=== PATIENT | female | born 1995 | race Caucasian/White ===

== ENCOUNTER 2017-10-18 16:17 | Inpatient (IN) ==
--- NOTE | 2017-10-18 17:26 | Emergency Department Note ---
Disposition Clinical Impression: Suicidal ideation Depression Qualifiers: Depression Type: unspecified Qualified Code(s): F32.9 - Major depressive disorder, single episode, unspecified Disposition: Admitted As Inpatient Condition: Good Referrals: NONE,PCP [Primary Care Provider] - Forms: ED Satisfaction Letter Time of Disposition: 21:28 Psych HPI - General Chief Complaint: ED Psychiatric Symptoms Stated Complaint: 1a consult Time Seen by Provider: 10/18/17 17:18 Source: patient Mode of arrival: ambulatory Limitations: no limitations Nursing Notes Reviewed: Yes Vital Signs Reviewed: Yes - History of Present Illness HPI Narrative: 22 year old female wit HX of depression and [facility] the past is a patient of Dr. Aviles and presents with increased depresion thoughts and lack of enthusiam to live. She does not have a plan but she states that her deprssion has worsened to the point that she does not care if she dies. Melisa states that Dr. Tobar has asked her to come to the ED for evaluation for 1A consult. Melisa denies any changes in medicatiosn and states that this is similar to how she felt when she was admitted last [facility]. increased stressors in life inclusing family and friends. - Related Data Allergies Allergy/AdvReac Type Severity Reaction Status Date / Time clonazepam Allergy Hallucinati Verified 01/26/16 13:58 ng lisinopril Allergy Hypertensio Verified 01/26/16 13:58 n morphine Allergy Hives Verified 01/26/16 13:58 Constitutional: Denies: fever, chills, weakness, weight change Eyes: Denies: eye pain, eye discharge, vision change ENT ED: Denies: ear pain, throat pain, dental pain, hearing loss, epistaxis, congestion, dysphagia Cardiovascular: Denies: chest pain, palpitations, dyspnea on exertion, edema, syncope Respiratory: Denies: cough, dyspnea, wheezes, hemoptysis, stridor Gastrointestinal: Denies: abdominal pain, nausea, vomiting, diarrhea, constipation, hematemesis, melena, hematochezia Genitourinary: Denies: dysuria, frequency, hematuria, discharge Musculoskeletal: Denies: back pain, neck pain, arthralgia, myalgia Integumentary: Denies: rash, abrasion, lesions Neurological: Denies: headache, weakness, numbness, paresthesias, confusion, abnormal gait, vertigo Psychiatric: Reports: depression. Denies: anxiety, suicidal thoughts, homicidal thoughts, auditory hallucinations, visual hallucinations Endocrine: Denies: fatigue Hematological/Lymphatic: Denies: easy bleeding, easy bruising Allergic/Immunologic: Denies: facial swelling, urticaria Past Medical History - Past Medical History Medical history: Reports: hypertension Psychiatric history: Reports: anxiety, depression [employer] history: Reports: endometriosis - Social History Smoking Status: Never smoker Smokeless Tobacco Status: No Alcohol use: Reports: none Drug use: Reports: none Physical Exam - General Limitations: no limitations General appearance: alert - Head Head exam: atraumatic, normocephalic, normal inspection - Eye Eye exam: Present: normal appearance, PERRL, EOMI - Expanded Eye Exam Pupils: Bilateral: reactive - ENT ENT exam: normal exam, normal oropharynx, mucous membranes moist - Expanded ENT Exam External ear exam: Present: normal external inspection Mouth exam: Present: normal external inspection Teeth exam: Present: normal inspection Throat exam: Present: normal inspection - Neck Neck exam: Present: normal inspection, full ROM, trachea midline - Chest Chest inspection: Present: normal inspection, symmetric chest wall rise - Respiratory Respiratory exam: Present: normal lung sounds bilaterally - Cardiovascular Cardiovascular exam: Present: regular rate, normal rhythm, normal heart sounds - Abdominal Exam Abdominal exam: Present: soft, Non-Tender. Absent: tenderness, distention, guarding, rebound, rigidity - Extremities Exam Extremities exam: Present: normal inspection, full ROM. Absent: tenderness, pedal edema - Expanded Upper Extremity Exam Shoulder exam: Present: normal inspection, full ROM Arm exam: Present: normal inspection, full ROM Elbow exam: Present: normal inspection, full ROM Forearm/Wrist exam: Present: normal inspection, full ROM Hand exam: Present: normal inspection, full ROM Vascular exam: Normal: capillary refill, radial pulse - Expanded Lower Extremity Exam Hip/Pelvis exam: Present: normal inspection, full ROM Upper leg exam: Present: normal inspection, full ROM Knee exam: Present: normal inspection, full ROM Lower leg exam: Present: normal inspection, full ROM Ankle exam: Present: normal inspection, full ROM Foot/toe exam: Present: normal inspection, full ROM Neurovascular/Tendon exam: Absent: motor deficit, sensory deficit, tendon deficit - Back Exam Back exam: Present: normal inspection, full ROM. Absent: tenderness - Neurological Exam Neurological exam: Present: alert, oriented X3 - Expanded Neurological Exam Patient oriented to: Present: person, place, time Speech: Present: fluid speech Coma Scale Eye Opening: Spontaneous Coma Scale Motor Response: Obeys Commands Coma Scale Verbal Response: Oriented Coma Scale Total: 15 - Psychiatric Psychiatric exam: Present: depressed, flat affect - Skin Skin exam: Present: warm, dry, intact, normal color Course Course Narrative: we will do 1A consult after medical clearance - Reevaluation(s) Reevaluation #1: melisa is medically cleared. 1A consulted Time: 19:08 Reevaluation #2: 1A has accepted patient. WE will treat her blood pressure with home medication and then admit to 1A Time: 21:28 Vital Signs Temperature 98.6 F 10/18/17 16:35 Pulse Rate 121 10/18/17 16:35 Respiratory Rate 18 10/18/17 16:35 Blood Pressure 159/106 10/18/17 16:35 O2 Sat by Pulse Oximetry 99 10/18/17 16:35 Temperature 98.6 F 10/18/17 16:35 Pulse Rate 121 10/18/17 16:35 Respiratory Rate 18 10/18/17 16:35 Blood Pressure 159/106 10/18/17 16:35 O2 Sat by Pulse Oximetry 99 10/18/17 16:35 Oxygen Delivery Oxygen Delivery Room Air Psych - Lab Data Result diagrams: 10/18/17 17:00 10/18/17 17:00 Lab Results 10/18/17 10/18/17 10/18/17 Range/Units 16:52 17:00 17:00 WBC 7.9 (4.3-11.1) K/mcL RBC 4.74 (3.82-4.97) M/mcL Hgb 14.1 (11.5-15.4) g/dL Hct 42.6 (35.3-44.9) % MCV 89.9 (83.0-100.0) fL MCH 29.7 (28.0-33.3) pg MCHC 33.1 (31.6-35.5) g/dL RDW 12.3 (11.5-14.5) % Plt Count 249 (140-400) K/mcL MPV 10.6 (9.4-12.4) fL Immature Gran % 0.3 (0-4) % Seg Neutrophils % 67.6 % Lymphocytes % 21.6 % Monocytes % 8.3 % Eosinophils % 1.4 % Basophils % 0.8 % Neutrophils # 5.4 (1.6-8.9) K/mcL Lymphocytes # 1.7 (0.6-4.6) K/mcL Monocytes # 0.7 (0.0-1.3) K/mcL Eosinophils # 0.1 (0.0-0.6) K/mcL Basophils # 0.1 (0.0-0.2) K/mcL Sodium 141 (136-145) mEq/L Potassium 4.0 (3.5-5.1) mEq/L Chloride 110 H (98-107) mEq/L Carbon Dioxide 23 (23-29) mEq/L BUN 12 (6-20) mg/dL Creatinine 0.93 (0.60-1.20) mg/dL Est GFR ( Amer) > 60 (> 60) Est GFR (Non-Af Amer) > 60 (> 60) BUN/Creatinine Ratio 13 (6-26) Glucose 102 (70-105) mg/dL Calculated Osmolality 292 (280-300) Calcium 9.3 (8.6-10.3) mg/dL Urine Color (Yellow) Urine Clarity (Clear) Urine pH (5.0-8.0) pH Units Ur Specific [place] (1.010-1.025) Urine Protein (Neg-Trace) mg/dL Urine Glucose (UA) (Normal) mg/dL Urine Ketones (Negative) mg/dL Urine Blood (Negative) Urine Nitrite (Negative) Urine Bilirubin (Negative) Urine Urobilinogen (Normal) mg/dL Ur Leukocyte Esterase (Negative) Ur Culture Indicated? (NO) Urine Test Negative (Negative) Salicylates < 5.0 L (15.0-30.0) mg/dL Urine Opiates Screen (Qfivdm=590) ng/mL Acetaminophen < 1.0 L (10-30) mcg/mL Ur Barbiturates Screen (Dffaeg=996) ng/mL Ur Phencyclidine Scrn (Cutoff=25) ng/mL Ur Amphetamines Screen (Judyrm=2543) ng/mL U Benzodiazepines Scrn (Bmcpkx=814) ng/mL Urine Cocaine Screen (Cutoff= 300) ng/mL U Marijuana (THC) Screen (Cutoff = 50) ng/mL Ethyl Alcohol < 10 (0-10) mg/dL 10/18/17 10/18/17 Range/Units 17:17 17:20 WBC (4.3-11.1) K/mcL RBC (3.82-4.97) M/mcL Hgb (11.5-15.4) g/dL Hct (35.3-44.9) % MCV (83.0-100.0) fL MCH (28.0-33.3) pg MCHC (31.6-35.5) g/dL RDW (11.5-14.5) % Plt Count (140-400) K/mcL MPV (9.4-12.4) fL Immature Gran % (0-4) % Seg Neutrophils % % Lymphocytes % % Monocytes % % Eosinophils % % Basophils % % Neutrophils # (1.6-8.9) K/mcL Lymphocytes # (0.6-4.6) K/mcL Monocytes # (0.0-1.3) K/mcL Eosinophils # (0.0-0.6) K/mcL Basophils # (0.0-0.2) K/mcL Sodium (136-145) mEq/L Potassium (3.5-5.1) mEq/L Chloride (98-107) mEq/L Carbon Dioxide (23-29) mEq/L BUN (6-20) mg/dL Creatinine (0.60-1.20) mg/dL Est GFR ( Amer) (> 60) Est GFR (Non-Af Amer) (> 60) BUN/Creatinine Ratio (6-26) Glucose (70-105) mg/dL Calculated Osmolality (280-300) Calcium (8.6-10.3) mg/dL Urine Color Yellow (Yellow) Urine Clarity Clear (Clear) Urine pH 6.5 (5.0-8.0) pH Units Ur Specific [place] 1.027 H (1.010-1.025) Urine Protein Negative (Neg-Trace) mg/dL Urine Glucose (UA) Normal (Normal) mg/dL Urine Ketones Negative (Negative) mg/dL Urine Blood Negative (Negative) Urine Nitrite Negative (Negative) Urine Bilirubin Negative (Negative) Urine Urobilinogen Normal (Normal) mg/dL Ur Leukocyte Esterase Negative (Negative) Ur Culture Indicated? NO (NO) Urine Test (Negative) Salicylates (15.0-30.0) mg/dL Urine Opiates Screen Negative (Mjoiwo=191) ng/mL Acetaminophen (10-30) mcg/mL Ur Barbiturates Screen Negative (Cizpcv=225) ng/mL Ur Phencyclidine Scrn Negative (Cutoff=25) ng/mL Ur Amphetamines Screen Negative (Flxjsj=6285) ng/mL U Benzodiazepines Scrn Negative (Vnarad=107) ng/mL Urine Cocaine Screen Negative (Cutoff= 300) ng/mL U Marijuana (THC) Screen Negative (Cutoff = 50) ng/mL Ethyl Alcohol (0-10) mg/dL Psychiatric Medical Clearance - Medical Clearance Checklist Medical History: Closed head injury (Inactive) Concussion without loss of consciousness (Inactive) Contusion of left hand (Inactive) Syncope (Inactive) No Social History Section defined Current Vitals: Last Vital Signs Temp 98.6 F 10/18/17 16:35 Pulse 121 10/18/17 16:35 Resp 18 10/18/17 16:35 BP 159/106 10/18/17 16:35 Pulse Ox 99 10/18/17 16:35 Psychiatric Lab Panel: Drug Levels and Toxicity 10/18/17 10/18/17 17:00 17:17 Urine Opiates Screen Negative Acetaminophen < 1.0 L Ur Barbiturates Screen Negative Ur Phencyclidine Scrn Negative Ur Amphetamines Screen Negative U Benzodiazepines Scrn Negative Urine Cocaine Screen Negative U Marijuana (THC) Screen Negative Ethyl Alcohol < 10 Abnormal Labs: Abnormal lab results Chloride 110 mEq/L (98-107) H 10/18/17 17:00 Ur Specific [place] 1.027 (1.010-1.025) H 10/18/17 17:20 Salicylates < 5.0 mg/dL (15.0-30.0) L 10/18/17 17:00 Acetaminophen < 1.0 mcg/mL (10-30) L 10/18/17 17:00 Statement of Medical Clearance: I have evaluated the patient, reviewed diagnostic information, and certify that the patient's medical condition is sufficiently stable that transfer to the psychiatric unit does not pose a significant risk of deterioration.
[2017-10-18 17:29] LABS: Bilirubin,Urine Negative (Negative); Blood,Urine Negative (Negative); Clarity,Urine Clear (Clear); Color,Urine Yellow (Yellow); Glucose,Urine (UA) Normal (Normal); Ketones,Urine Negative (Negative); Nitrite,Urine Negative (Negative); PH,Urine 6.5 pH Units (5.0-8.0); Protein,Urine Negative (Neg-Trace); Specific Gravity,Urine 1.027 (1.010-1.025); Urobilinogen,Urine Normal (Normal)
[2017-10-18 17:30] LABS: Leukocyte Esterase,Urine Negative (Negative)
[2017-10-18 17:39] LABS: Basophils # 0.1 K/mcL (0.0-0.2); Basophils % 0.8 %; Eosinophils # 0.1 K/mcL (0.0-0.6); Eosinophils % 1.4 %; Hematocrit 42.6 % (35.3-44.9); Hemoglobin 14.1 g/dL (11.5-15.4); Immature Granulocytes % 0.3 % (0-4); Lymphocytes # 1.7 K/mcL (0.6-4.6); Lymphocytes % 21.6 %; Mean Corpuscular HGB Conc 33.1 g/dL (31.6-35.5); Mean Corpuscular Hemoglobin 29.7 pg (28.0-33.3); Mean Corpuscular Volume 89.9 fL (83.0-100.0); Mean Platelet Volume 10.6 fL (9.4-12.4); Monocytes # 0.7 K/mcL (0.0-1.3); Monocytes % 8.3 %; Neutrophils # 5.4 K/mcL (1.6-8.9); Platelet Count 249 K/mcL (140-400); Red Blood Count 4.74 M/mcL (3.82-4.97); Red Cell Distribution Width 12.3 % (11.5-14.5); Segmented Neutrophils % 67.6 %
[2017-10-18 17:57] LABS: Amphetamine Screen,Urine Negative ng/mL (Cutoff=1000); Barbiturate Screen,Urine Negative ng/mL (Cutoff=200); Benzodiazepines Screen,Urine Negative ng/mL (Cutoff=200); Cannabinoid Screen,Urine Negative ng/mL (Cutoff = 50); Cocaine Screen,Urine Negative ng/mL (Cutoff= 300); Opiate Screen,Urine Negative ng/mL (Cutoff=300); Phencyclidine Screen,Urine Negative ng/mL (Cutoff=25)
[2017-10-18 17:59] LABS: BUN/Creatinine Ratio 13 (6-26); Blood Urea Nitrogen 12 mg/dL (6-20); Calcium 9.3 mg/dL (8.6-10.3); Carbon Dioxide 23 mEq/L (23-29); Chloride 110 mEq/L (98-107); Glucose 102 mg/dL (70-105); Osmolality,Calculated 292 (280-300); Sodium 141 mEq/L (136-145); eGFR For African Americans > 60 (> 60); eGFR For Non-African Americans > 60 (> 60)
[2017-10-18 19:04] LABS: Acetaminophen < 1.0 mcg/mL (10-30); Ethanol < 10 mg/dL (0-10); Salicylate < 5.0 mg/dL (15.0-30.0)
[2017-10-18] MEDS ORDERED: *HR* LORazepam 2 MG/ML VIAL IM PRN (23:58)
[2017-10-18] MEDS ORDERED: Mag Hydrox/Al Hydrox/Simeth 30 ML UDC PO PRN (23:58)
[2017-10-18] MEDS ORDERED: traZODone 50 MG TABLET PO PRN (23:58)
[2017-10-18] MEDS ORDERED: Acetaminophen 325 MG TABLET PO PRN (23:58)
[2017-10-18] MEDS ORDERED: MOM Conc 10 ML UD.LIQ PO PRN (23:58)
[2017-10-18] MEDS ORDERED: *HR* LORazepam 1 MG TABLET PO PRN (23:58)
[2017-10-18] MEDS ORDERED: Haloperidol Lactate 5 MG/ML VIAL IM PRN (23:58)
[2017-10-19] MEDS: ALPRAZolam 0.5 MG TABLET PO PRN ×2 (08:59→21:28)
[2017-10-19] MEDS: amLODIPine 5 MG TABLET PO SCH (09:00)
[2017-10-19] MEDS: LO LOESTRIN FE PO SCH (11:39)
[2017-10-19] MEDS ORDERED: ALPRAZolam 0.5 MG TABLET PO ONE (12:26)
--- NOTE | 2017-10-19 14:56 | Psychiatry History & Physical ---
Date of Encounter: 10/19/17 Time of Encounter: 14:30 History of Present Illness Patient Stated Chief Complaint: sad as crap, never been this sad Medicare Admission Attestation: For traditional Medicare patients the provided hospital inpatient services are reasonable and necessary and in the case of services not specified as inpatient -only under 42 CFR 419.22 (n), that they are appropriately provided as inpatient services in accordance 42 CFR 412.3. For Critical Access Hospital the patient may reasonably be expected to be discharged or transferred to a hospital within 96 hours after admission to the Critical Access Hospital. Admitted From: Emergency Dept Plans for Post Hospital Care: Home History of Present Illness: Ms. Ramirez is a 22 year old female Patient is followed in [facility]. She has been seen by Dr. Tobar. The most recent notes were reviewed. The patient reports that she has ongoing depression and has had suicidal ideation on medicines. She had an adverse reaction to clonazepam and attempt to stab herself. The patient reports that she has had major depression since eighth grade this is after they told her that she could have had MS this is based in part on findings of "white spots on the brain" patient follows up with a neurologist once a year she has had multiple concussions. She has been told that she does not have MS. The patient has low mood low interest guilt trouble with attention and concentration she has some excessive stress eating. She has good exercise she goes to the gym her sleep is poor and abnormal. The patient has no suicidal plans but has a feeling that she does not want to exist or feels as if she could . Patient had excessive that it had low mood associated with bereavement. Her mother in an auto accident unexpectedly September [id number]. The patient had been engaged in thought of getting but is not sure. The depression is causing impairment in her relationship. She is panic attacks a history of agoraphobia and generalized anxiety symptoms she denies cleaning counting checking collecting confessing. The patient has some recall of the loss of her mother and says that her mother was her best friend. The patient was hospitalized when she was a freshman she was placed on medicines made her feel like a zombie. The hospitalization was precipitated by withdrawal from the entire anxiety medicine after 2 weeks after a form Sonam. Patient has no alcohol drug or even marijuana use. Past medical history is significant for right knee meniscal surgery history of tonsillectomy. Laparoscopy to look for endometriosis which was not found Illnesses hypertension headaches. The patient has no history of seizures. 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 The patient's allergies are listed but she had an allergic reaction to Zoloft where she attempted herself. The family history is significant for mother who is on medications for depression including Zoloft. There is no history of suicide. 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 They are near the grandparents. 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 She is attending college she is hoping medical and social work. She has no other legal problems. The wedding is all bottom paid for by her fiance is not sure as they seem to be growing more distant. The review of systems significant for several things. The patient talks in her sleep she has nightmares and dreams where she sees her mother and wakes up crying. There are panic attacks that she wakes she has no sleepwalking. The patient has snoring and her fiance's told her that. The patient was never treated for attention deficit disorder. The family history is significant for mother with sleep apnea maternal grandmother was sleep apnea maternal cousin with sleep apnea. The patient has been tried on Zoloft Abilify Prozac but has never been on Wellbutrin she has never been on stimulants Provigil and as far as I can tell is never been on tricyclic antidepressants Patient has been on control but rather than taking it as prescribed she skips last week in order not.. So she has oligomenorrhea. This is because she has dysmenorrhea and finds Alhaji so difficult that she wants to avoid it. She knows that this is bad but was not sure about this. The patient also has despair and uremia. This has caused some concerns in the marital relationship and the patient is avoided relations nonetheless she would like children. The patient has chronic constipation. The patient has hypertension just treated with several medicines she has been told with the left heart of her left side of her heart was enlarged Past Med Surg Social Fam HX - Past Medical History Source: patient, old records reviewed Medical history: hypertension - Past Psychiatric History Psychiatric history: Reports: depression, prior suicide attempt, previous psychiatric hospitalization Family psychiatric history: Yes Family History of Suicide: None - Social History Smoking Status: Never smoker Smokeless Tobacco Status: No Alcohol use: none Drug use: none - Additional Family History Additional family history: sleep apnea Medications & Allergies ALPRAZolam [Xanax 0.5 MG Tablet] 0.25 - 0.5 mg PO BID PRN 10/18/17 [History] Carvedilol [Coreg] 25 mg PO BID 10/18/17 [History] Losartan Potassium [Cozaar] 100 mg PO DAILY 10/18/17 [History] Norethindrone-E.estradiol-Iron [Lo Loestrin Fe 1-10 Tablet] 1 tab PO DAILY 10/18 [History] Pantoprazole Sodium [Pantoprazole Sodium] 40 mg PO DAILY 10/18/17 [History] amLODIPine [Norvasc] 5 mg PO DAILY 10/18/17 [History] 3 Allergy/AdvReac Type Severity Reaction Status Date / Time clonazepam Allergy Hallucinati Verified 01/26/16 13:58 ng lisinopril Allergy Hypertensio Verified 01/26/16 13:58 n morphine Allergy Hives Verified 01/26/16 13:58 Review of Systems Constitutional: Reports: weight change Gastrointestinal: Reports: constipation Genitourinary female: Reports: abnormal menses, dyspareunia Musculoskeletal: Reports: joint pain Neurological: Reports: headache Psychiatric: Reports: abnormal sleep pattern, change in appetite, difficulty concentrating, hopelessness, panic attacks Mental Status Exam Patient orientation: Yes Person, Yes Time, Yes Place Level of alertness: Sedated Patient appearance: Appropriate, Obese Behavior: cooperative Psychomotor activity: Slowed Eye contact: Maintains Eye Contact Mood description: Depressed Affect description: congruent with mood, blunted Speech pattern: Slowed Speech volume: Normal Thought process: Intact Thought content: Yes Suicidal ideation, Yes Obsessive thoughts Attention span: Capable of Focused Attention Memory description: Grossly Intact Patient reliability: Reliable Historian Intelligence estimate: Above [place] Judgment: Fair Insight: Partial Exam - HEENT Head exam IM: Present: atraumatic, normal inspection, normocephalic Eye exam IM: Present: EOMI, PERRL ENT exam IM: Present: mucous membranes dry - Neurological Neurological exam IM: Present: normal gait - GI/Abdominal GI/Abdominal exam IM: Present: soft - Extremities Extremities exam IM: Present: warm - Skin Skin exam IM: Present: warm Results - Vital Signs Vital signs: Temp Pulse Resp BP Pulse Ox 98.9 F 85 16 145/88 97 10/19/17 09:00 10/19/17 09:00 10/19/17 09:00 10/19/17 09:00 10/18/17 22:04 - Labs Labs: Laboratory Last Values WBC 7.9 K/mcL (4.3-11.1) 10/18/17 17:00 RBC 4.74 M/mcL (3.82-4.97) 10/18/17 17:00 Hgb 14.1 g/dL (11.5-15.4) 10/18/17 17:00 Hct 42.6 % (35.3-44.9) 10/18/17 17:00 MCV 89.9 fL (83.0-100.0) 10/18/17 17:00 MCH 29.7 pg (28.0-33.3) 10/18/17 17:00 MCHC 33.1 g/dL (31.6-35.5) 10/18/17 17:00 RDW 12.3 % (11.5-14.5) 10/18/17 17:00 Plt Count 249 K/mcL (140-400) 10/18/17 17:00 MPV 10.6 fL (9.4-12.4) 10/18/17 17:00 Immature Gran % 0.3 % (0-4) 10/18/17 17:00 Seg Neutrophils % 67.6 % 10/18/17 17:00 Lymphocytes % 21.6 % 10/18/17 17:00 Monocytes % 8.3 % 10/18/17 17:00 Eosinophils % 1.4 % 10/18/17 17:00 Basophils % 0.8 % 10/18/17 17:00 Neutrophils # 5.4 K/mcL (1.6-8.9) 10/18/17 17:00 Lymphocytes # 1.7 K/mcL (0.6-4.6) 10/18/17 17:00 Monocytes # 0.7 K/mcL (0.0-1.3) 10/18/17 17:00 Eosinophils # 0.1 K/mcL (0.0-0.6) 10/18/17 17:00 Basophils # 0.1 K/mcL (0.0-0.2) 10/18/17 17:00 Sodium 141 mEq/L (136-145) 10/18/17 17:00 Potassium 4.0 mEq/L (3.5-5.1) 10/18/17 17:00 Chloride 110 mEq/L (98-107) H 10/18/17 17:00 Carbon Dioxide 23 mEq/L (23-29) 10/18/17 17:00 BUN 12 mg/dL (6-20) 10/18/17 17:00 Creatinine 0.93 mg/dL (0.60-1.20) 10/18/17 17:00 Est GFR ( Amer) > 60 (> 60) 10/18/17 17:00 Est GFR (Non-Af Amer) > 60 (> 60) 10/18/17 17:00 BUN/Creatinine Ratio 13 (6-26) 10/18/17 17:00 Glucose 102 mg/dL (70-105) 10/18/17 17:00 Calculated Osmolality 292 (280-300) 10/18/17 17:00 Calcium 9.3 mg/dL (8.6-10.3) 10/18/17 17:00 Urine Color Yellow (Yellow) 10/18/17 17:20 Urine Clarity Clear (Clear) 10/18/17 17:20 Urine pH 6.5 pH Units (5.0-8.0) 10/18/17 17:20 Ur Specific [place] 1.027 (1.010-1.025) H 10/18/17 17:20 Urine Protein Negative mg/dL (Neg-Trace) 10/18/17 17:20 Urine Glucose (UA) Normal mg/dL (Normal) 10/18/17 17:20 Urine Ketones Negative mg/dL (Negative) 10/18/17 17:20 Urine Blood Negative (Negative) 10/18/17 17:20 Urine Nitrite Negative (Negative) 10/18/17 17:20 Urine Bilirubin Negative (Negative) 10/18/17 17:20 Urine Urobilinogen Normal mg/dL (Normal) 10/18/17 17:20 Ur Leukocyte Esterase Negative (Negative) 10/18/17 17:20 Ur Culture Indicated? NO (NO) 10/18/17 17:20 Urine Test Negative (Negative) 10/18/17 16:52 Salicylates < 5.0 mg/dL (15.0-30.0) L 10/18/17 17:00 Urine Opiates Screen Negative ng/mL (Jpvwpi=528) 10/18/17 17:17 Acetaminophen < 1.0 mcg/mL (10-30) L 10/18/17 17:00 Ur Barbiturates Screen Negative ng/mL (Gifnvu=747) 10/18/17 17:17 Ur Phencyclidine Scrn Negative ng/mL (Cutoff=25) 10/18/17 17:17 Ur Amphetamines Screen Negative ng/mL (Hcjqhy=1057) 10/18/17 17:17 U Benzodiazepines Scrn Negative ng/mL (Sljzjc=063) 10/18/17 17:17 Urine Cocaine Screen Negative ng/mL (Cutoff= 300) 10/18/17 17:17 U Marijuana (THC) Screen Negative ng/mL (Cutoff = 50) 10/18/17 17:17 Ethyl Alcohol < 10 mg/dL (0-10) 10/18/17 17:00 Assessment and Plan (1) Major depressive disorder, recurrent severe without psychotic features Current visit: Yes Status: Acute Plan: Admit inpatient for safety and stabilization, Close observation Risks, benefits, side effects, alternatives discussed w/pt: Yes Patient agreeable to treatment: Yes Plans for Post Hospital Care: Home Estimated Length of Stay ( Days): 5 (2) Anxiety disorder Current visit: Yes Status: Chronic Plan: Monitor appetite, Family/Supportive other meeting Risks, benefits, side effects, alternatives discussed w/pt: Yes Patient agreeable to treatment: Yes Plans for Post Hospital Care: Home Qualifiers: Anxiety disorder type: panic disorder without agoraphobia Qualified Code(s) : F41.0 - Panic disorder [episodic paroxysmal anxiety] (3) Essential (primary) hypertension Current visit: Yes Status: Chronic Plan: Admit inpatient for safety and stabilization, Suicide Precautions per unit protocol Risks, benefits, side effects, alternatives discussed w/pt: Yes Patient agreeable to treatment: Yes Plans for Post Hospital Care: Home (4) Dyspareunia due to non-psychogenic cause in female Current visit: Yes Status: Suspected Risks, benefits, side effects, alternatives discussed w/pt: Yes Patient agreeable to treatment: Yes Plans for Post Hospital Care: Home (5) Parasomnia Current visit: Yes Status: Chronic Plan: Close observation, Monitor sleep Risks, benefits, side effects, alternatives discussed w/pt: Yes Patient agreeable to treatment: Yes Plans for Post Hospital Care: Home (6) Adverse effect of other antidepressants, subsequent encounter Current visit: Yes Status: Acute Plan: Admit inpatient for safety and stabilization, Close observation, Encourage participation in unit milieu, Secure weapons Risks, benefits, side effects, alternatives discussed w/pt: Yes Patient agreeable to treatment: Yes Plans for Post Hospital Care: Home
[2017-10-20] MEDS: BuPROPion XL (24 HR) 150 MG TABLET PO SCH (08:59)
[2017-10-20] MEDS: amLODIPine 5 MG TABLET PO SCH (08:59)
[2017-10-20] MEDS: LO LOESTRIN FE PO SCH (08:59)
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
[2017-10-20] MEDS: Ibuprofen 400 MG TABLET PO PRN (11:17)
[2017-10-20] MEDS: ALPRAZolam 0.5 MG TABLET PO PRN ×2 (13:44→21:33)
[2017-10-21] MEDS: amLODIPine 5 MG TABLET PO SCH (08:31)
[2017-10-21] MEDS: BuPROPion XL (24 HR) 150 MG TABLET PO SCH (08:32)
[2017-10-21] MEDS: ALPRAZolam 0.5 MG TABLET PO PRN (08:32)
[2017-10-21] MEDS: LO LOESTRIN FE PO SCH ×2 (08:37→15:12)
--- NOTE | 2017-10-21 12:45 | Psychiatry Progress Note ---
Date of Encounter: 10/21/17 Time of Encounter: 12:42 Subjective Interval history: Client states she is still severely depressed. Wonders if she is getting worse. Actually notices an increase in her SI. Discussed whether or not she might have sleep apnea. Client is obese. She endorses poor sleep, nighttime awakenings, snoring, gasping for air, morning headaches and daytime sleepiness. Client also states her mother, grandmother, and cousin were all diagnosed with sleep apnea and wore CPAP machines. Discussed how sleep apnea can cause and worsen depression. Client definitely needs a sleep study. Will start pursuing this when offices open tomorrow. Review of Systems Psychiatric: Reports: abnormal sleep pattern, change in appetite, difficulty concentrating, hopelessness, panic attacks Objective: Exam Patient orientation: Yes Person, Yes Time, Yes Place Level of alertness: Alert Patient appearance: Appropriate Behavior: calm, cooperative Psychomotor activity: Normal Eye contact: Maintains Eye Contact Mood description: Depressed Affect description: congruent with mood Speech pattern: Normal rate Speech volume: Normal Thought process: Linear Thought content: Yes Suicidal ideation, No Homicidal ideation, No Overt delusions Perceptual disturbances: No Auditory hallucinations, No Visual hallucinations Judgment: Limited Insight: Partial Results - Vital Signs Vital Signs: Temp Pulse Resp BP Pulse Ox 98.4 F 84 18 155/94 96 10/21/17 09:00 10/21/17 09:00 10/21/17 09:00 10/21/17 09:00 10/19/17 20:07 Assessment and Plan (1) Major depressive disorder, recurrent severe without psychotic features Current visit: Yes Status: Acute Plan: Continue hospitalization, Close observation, Suicide Precautions per unit protocol, Encourage participation in unit milieu, Group Therapy, Monitor sleep, Monitor appetite Risks, benefits, side effects, alternatives discussed w/pt: Yes Patient agreeable to treatment: Yes (2) Anxiety disorder Current visit: Yes Status: Chronic Plan: Continue hospitalization, Close observation, Suicide Precautions per unit protocol, Encourage participation in unit milieu, Group Therapy, Monitor sleep, Monitor appetite Risks, benefits, side effects, alternatives discussed w/pt: Yes Patient agreeable to treatment: Yes Qualifiers: Anxiety disorder type: panic disorder without agoraphobia Qualified Code(s) : F41.0 - Panic disorder [episodic paroxysmal anxiety] (3) Adverse effect of other antidepressants, subsequent encounter Current visit: Yes Status: Acute Plan: Continue hospitalization, Close observation, Suicide Precautions per unit protocol, Encourage participation in unit milieu, Group Therapy, Monitor sleep, Monitor appetite Risks, benefits, side effects, alternatives discussed w/pt: Yes Patient agreeable to treatment: Yes Consult Discharge Plan - Plan Referrals: [facility] [Other] (The above appointment is with Dianne Radford for outpatient mental health counseling services. ) [facility] [Outside] - 11/26/17 2:20 pm (The above appointment is with Dr. Adams for psychiatric assessment and medication management services.)
[2017-10-21] MEDS ORDERED: ALPRAZolam 0.25 MG TABLET PO PRN ×2 (14:18→21:00)
[2017-10-21] MEDS: Ibuprofen 400 MG TABLET PO PRN (16:47)
[2017-10-21] MEDS ORDERED: ALPRAZolam 0.5 MG TABLET PO PRN (20:30)
[2017-10-22] MEDS: amLODIPine 5 MG TABLET PO SCH (09:20)
[2017-10-22] MEDS: BuPROPion XL (24 HR) 150 MG TABLET PO SCH (09:20)
[2017-10-22] MEDS: LO LOESTRIN FE PO SCH (09:22)
[2017-10-22 09:53] VITALS: BP 120/80
--- NOTE | 2017-10-22 12:19 | Discharge Summary ---
Date of Encounter: 10/22/17 Time of Encounter: 12:17 Diagnosis - Discharge Diagnosis (1) Major depressive disorder, recurrent severe without psychotic features Status: Acute (2) Anxiety disorder Status: Chronic Qualifiers: Anxiety disorder type: panic disorder without agoraphobia Qualified Code(s) : F41.0 - Panic disorder [episodic paroxysmal anxiety] (3) Adverse effect of other antidepressants, subsequent encounter Status: Acute Medications - Discharge Medications Prescriptions: BuPROPion XL (24 HR) [Wellbutrin Xl] 150 mg PO DAILY #14 tab.er.24h ALPRAZolam [Xanax 0.5 MG Tablet] 0.25 - 0.5 mg PO BID PRN 10/18/17 [History] Carvedilol [Coreg] 25 mg PO BID 10/18/17 [History] Losartan Potassium [Cozaar] 100 mg PO DAILY 10/18/17 [History] Norethindrone-E.estradiol-Iron [Lo Loestrin Fe 1-10 Tablet] 1 tab PO DAILY 10/18 [History] Pantoprazole Sodium 40 mg PO DAILY 10/18/17 [History] amLODIPine [Norvasc] 5 mg PO DAILY 10/18/17 [History] BuPROPion XL (24 HR) [Wellbutrin Xl] 150 mg PO DAILY #14 tab.er.24h 10/22/17 [Rx ] 3 Allergy/AdvReac Type Severity Reaction Status Date / Time clonazepam Allergy Hallucinati Verified 01/26/16 13:58 ng lisinopril Allergy Hypertensio Verified 01/26/16 13:58 n morphine Allergy Hives Verified 01/26/16 13:58 Provider Date of admission: 10/18/17 22:08 Primary care physician: PCP NONE Discharging clinician: Nicolle Gramajo Assessment and Plan - Patient/Caregiver Discharge Instructions Activity: resume usual activities as tolerated Diet: regular diet - Follow up Plan Follow up with: Jaswinder Huitron [Other] - 10/25/17 1:00 pm (The above appointment is with Dianne Radford for outpatient mental health counseling services. ) [facility] [Outside] - 11/26/17 2:20 pm (The above appointment is with Dr. Adams for psychiatric assessment and medication management services.) Mimi Hightower [facility] [Partnered Physician] - 10/29/17 1:00 pm (The above appointment is with Tatyana Hightower for primary healthcare follow-up and to discuss need for sleep study/CPAP.) Functional capacity at discharge: independent ambulation Overall status at discharge: Stable Disposition: Home, Self-Care Hospital Course Hospital course: Ms. Ramirez is a 22 year old female who was admitted secondary to SI. Client was started on Wellbutrin with some benefit. Client maintained she was suicidal until the day of discharge when she suddenly announced that she was no longer suicidal and she had no thoughts of self harm. Client had close to twenty visitors daily according to staff. Many supports in place. Family was wanting to take client to [facility] because other members of the family had been hospitalized there. Client stated today that she was ready for discharge and if she needed to be rehospitalized she would go to [facility] "because they have groups." Client refused groups here and the ones she attended she complained were boring and she would come late or leave early. It was repeatedly stressed to client that she needs treated for sleep apnea given her family history and her physical health complaints. Client seemed unconvinced but a referral was made to her PCP in the hopes that client will follow through down the road. Presentation during this hospitalization was very Borderline in nature. Client likely has legitimate depression but a large part of her clinical picture is personality driven. - Time Spent with Patient Total time spent providing and/or coordinating discharge services: Quality - Multiple Antipsychotics Patient discharged on 2 or more antipsychotic medications: No Procedures - Procedures Procedures: Medication Management, Crisis Stabilization, Supportive Therapy, Group Therapy Mental Status Exam - Mental Status Exam Patient orientation: Yes Person, Yes Time, Yes Place Level of alertness: Alert Patient appearance: Appropriate, Well Groomed Behavior: calm, cooperative Psychomotor activity: Normal Eye contact: Maintains Eye Contact Mood description: Depressed Affect description: congruent with mood Speech pattern: Normal rate, Normal rhythm, Normal tone Speech Volume: Normal Thought process: Linear, Goal Oriented Thought Content: No Suicidal ideation, No Homicidal ideation, No Overt delusions Perceptual Disturbances: No Auditory hallucinations, No Visual hallucinations Judgment: Fair Insight: Partial
== END 2017-10-22 15:05 | disposition home or self-care (01) | DRG 885 ==
LOC: EMEROO 16:17 → 1ANU 22:08
PROVIDERS: ADMIT Student in an Organized Health Care Education/Training Program; ATTEND Student in an Organized Health Care Education/Training Program

== ENCOUNTER 2020-11-22 14:02 | Observation (INO) ==
[2020-11-22] MEDS ORDERED: Ketorolac 15 MG/ML VIAL IVP PRN (14:13)
[2020-11-22] MEDS ORDERED: Ondansetron 4 MG/2 ML VIAL IVP PRN (14:13)
[2020-11-22] MEDS: Ketorolac 30 MG/ML VIAL IVP PRN (15:27)
[2020-11-22] MEDS: 0.9 % Sodium Chloride 1,000 ML IVC SCH (15:28)
[2020-11-22 16:00] LABS: Basophils % 0.3 %; Eosinophils # 0.1 K/mcL (0.0-0.6); Eosinophils % 0.7 %; Hematocrit 41.4 % (35.3-44.9); Hemoglobin 14.1 g/dL (11.5-15.4); Immature Granulocytes % 0.3 % (0-4); Lymphocytes # 2.1 K/mcL (0.6-4.6); Lymphocytes % 21.7 %; Mean Corpuscular HGB Conc 34.1 g/dL (31.6-35.5); Mean Corpuscular Hemoglobin 30.8 pg (28.0-33.3); Mean Corpuscular Volume 90.4 fL (83.0-100.0); Mean Platelet Volume 10.3 fL (9.4-12.4); Monocytes # 0.9 K/mcL (0.0-1.3); Monocytes % 8.9 %; Neutrophils # 6.6 K/mcL (1.6-8.9); Platelet Count 274 K/mcL (140-400); Red Blood Count 4.58 M/mcL (3.82-4.97); Red Cell Distribution Width 11.9 % (11.5-14.5); Segmented Neutrophils % 68.1 %; White Blood Count 9.7 K/mcL (4.3-11.1)
[2020-11-22 16:15] LABS: BUN/Creatinine Ratio 13 (6-26); Blood Urea Nitrogen 12 mg/dL (6-20); Calcium 8.9 mg/dL (8.6-10.3); Carbon Dioxide 27 mEq/L (23-29); Chloride 101 mEq/L (98-107); Glucose 108 mg/dL (70-105); Osmolality,Calculated 282 (280-300); Potassium 3.1 mEq/L (3.5-5.1); Sodium 136 mEq/L (136-145); eGFR For African Americans > 60 (> 60); eGFR For Non-African Americans > 60 (> 60)
[2020-11-23] MEDS: 0.9 % Sodium Chloride 1,000 ML IVC SCH ×3 (01:43→15:15)
[2020-11-23] MEDS: Ketorolac 30 MG/ML VIAL IVP PRN ×2 (09:23→15:14)
[2020-11-23] MEDS ORDERED: Lidocaine -MPF 2% 2 ML VIAL ONE (09:35)
[2020-11-23] MEDS ORDERED: Lidocaine HCL 4 ML Topical Solution (Laryng-O-Jet Kit Sterile Pak) TP ONE (09:35)
[2020-11-23] MEDS ORDERED: *HR* Succinylcholine 200 MG/10 ML VIAL IVP ONE (09:35)
[2020-11-23] MEDS ORDERED: *HR* Rocuronium Bromide 50 MG/5 ML VIAL ONE (09:35)
[2020-11-23] MEDS ORDERED: Dexamethasone 4 MG/ML VIAL ONE (09:35)
[2020-11-23] MEDS ORDERED: Ondansetron 4 MG/2 ML VIAL ONE (09:35)
[2020-11-23] MEDS ORDERED: *HR* Propofol 200 MG/20 ML VIAL IVP ONE (09:36)
[2020-11-23] MEDS ORDERED: *HR* FentaNYL (PF) 100 MCG/2 ML VIAL ONE ×2 (09:36→11:26)
[2020-11-23] MEDS ORDERED: *HR* Midazolam HCl 2 MG/2 ML VIAL ONE (09:36)
[2020-11-23 10:20] LABS: Influenza A PCR Negative (Negative); Influenza B PCR Negative (Negative); Resp. Syncytial Virus PCR Negative (Negative)
[2020-11-23 10:36] LABS: SARS-CoV-2 by PCR (In House) Negative (Negative)
[2020-11-23] MEDS ORDERED: Acetaminophen IV 1,000 MG/100 ML BAG IVPB ONE (10:55)
[2020-11-23] MEDS ORDERED: Famotidine 20 MG/2 ML VIAL ONE (10:55)
[2020-11-23] MEDS ORDERED: *HR* HYDROmorphone (PF) 1 MG/ML SYRINGE IVP PRN ×2 (11:48→13:46)
[2020-11-23] MEDS ORDERED: Ondansetron 4 MG/2 ML VIAL IVP PRN ×2 (11:48→13:46)
[2020-11-23] MEDS ORDERED: Ketorolac 30 MG/ML VIAL ONE (11:52)
[2020-11-23] MEDS ORDERED: *HR* OxyCODONE/APAP 5/325 TABLET PO PRN (12:12)
[2020-11-23] MEDS ORDERED: *HR* HYDROMORPHONE 2 MG/ML VIAL ONE (12:18)
[2020-11-23] MEDS ORDERED: *HR* Acetaminophen w/Cod 300-30 mg 1 TAB TABLET PO PRN (13:46)
[2020-11-23] MEDS ORDERED: ALPRAZolam 1 MG TABLET PO PRN (13:46)
[2020-11-23] MEDS ORDERED: Ketorolac 15 MG/ML VIAL IVP PRN (13:46)
[2020-11-23] MEDS ORDERED: Ondansetron ODT 4 MG TAB.RAPDIS PO PRN (13:46)
[2020-11-23] MEDS: carvediloL 25 MG TABLET PO SCH (15:22)
[2020-11-23] MEDS: *HR* OxyCODONE/APAP 5/325 TABLET PO PRN (19:41)
[2020-11-23] MEDS: carBAMazepine 200 MG TABLET PO SCH (19:41)
[2020-11-24] MEDS: *HR* OxyCODONE/APAP 5/325 TABLET PO PRN (06:26)
[2020-11-24] MEDS: 0.9 % Sodium Chloride 1,000 ML IVC SCH (06:26)
[2020-11-24] MEDS: Ketorolac 30 MG/ML VIAL IVP PRN (08:05)
[2020-11-24] MEDS: carvediloL 25 MG TABLET PO SCH (08:05)
[2020-11-24] MEDS: carBAMazepine 200 MG TABLET PO SCH (08:05)
[2020-11-24] MEDS ORDERED: aMILoride 5 MG TABLET PO SCH (09:00)
[2020-11-24] MEDS ORDERED: cloNIDine HCL 0.1 MG TABLET PO SCH (09:00)
[2020-11-24] MEDS ORDERED: SOLRIAMFETOL HCL 150 MG PO SCH (09:00)
[2020-11-24 10:39] VITALS: BP 101/62
== END 2020-11-24 13:12 | disposition home or self-care (01) ==
LOC: 3BNU
PROVIDERS: ADMIT Surgery; ATTEND Surgery

== ENCOUNTER 2020-12-28 13:23 | Observation (INO) ==
[2020-12-28 15:13] LABS: Bilirubin,Urine Small (Negative); Blood,Urine Small (Negative); Clarity,Urine Clear (Clear); Color,Urine Yellow (Yellow); Glucose,Urine (UA) Normal (Normal); Ketones,Urine 20 mg/dL (Negative); Leukocyte Esterase,Urine Negative (Negative); Mucus,Urine Many per lpf (None-Few); Nitrite,Urine Negative (Negative); Protein,Urine 50 mg/dL (Neg-Trace); RBC,Urine 0-3 per hpf (0-3); Specific Gravity,Urine > 1.030 (1.010-1.025); Squamous Epithelial Cell,Urine Few per hpf (None-Few); WBC,Urine 0-3 per hpf (0-3)
[2020-12-28 15:20] LABS: Basophils # 0.1 K/mcL (0.0-0.2); Basophils % 0.5 %; Eosinophils % 0.2 %; Hematocrit 44.9 % (35.3-44.9); Hemoglobin 15.1 g/dL (11.5-15.4); Immature Granulocytes % 0.3 % (0-4); Lymphocytes # 1.6 K/mcL (0.6-4.6); Lymphocytes % 14.4 %; Mean Corpuscular HGB Conc 33.6 g/dL (31.6-35.5); Mean Corpuscular Hemoglobin 30.9 pg (28.0-33.3); Mean Corpuscular Volume 91.8 fL (83.0-100.0); Mean Platelet Volume 10.2 fL (9.4-12.4); Monocytes # 0.8 K/mcL (0.0-1.3); Monocytes % 7.5 %; Neutrophils # 8.5 K/mcL (1.6-8.9); Platelet Count 296 K/mcL (140-400); Red Blood Count 4.89 M/mcL (3.82-4.97); Red Cell Distribution Width 11.9 % (11.5-14.5); Segmented Neutrophils % 77.1 %
[2020-12-28 15:38] LABS: BUN/Creatinine Ratio 12 (6-26); Blood Urea Nitrogen 15 mg/dL (6-20); Carbon Dioxide 23 mEq/L (23-29); Chloride 100 mEq/L (98-107); Glucose 89 mg/dL (70-105); Osmolality,Calculated 280 (280-300); Potassium 4.4 mEq/L (3.5-5.1); Sodium 135 mEq/L (136-145); eGFR For African Americans > 60 (> 60); eGFR For Non-African Americans 52 (> 60)
[2020-12-28] MEDS ORDERED: 0.9 % Sodium Chloride 1,000 ML IVC ONE (17:06)
[2020-12-28] MEDS ORDERED: *HR* HYDROmorphone (PF) 1 MG/ML SYRINGE IVP ONE (17:06)
[2020-12-28] MEDS ORDERED: Isovue-370 500 ML BOTTLE IVP ONE (17:07)
[2020-12-28] MEDS: Ondansetron 4 MG/2 ML VIAL IVP ONE ×2 (17:25→20:16)
[2020-12-28 17:26] LABS: Alanine Aminotransferase 19 Units/L (7-52); Albumin 4.9 g/dL (3.5-5.7); Albumin/Globulin Ratio 1.4 (1.1-2.2); Alkaline Phosphatase 85 Units/L (34-104); Aspartate Amino Transferase 18 Units/L (13-39); Bilirubin,Direct 0.2 mg/dL (0.0-0.2); Bilirubin,Indirect 0.5 mg/dL (0.0-1.0); Bilirubin,Total 0.7 mg/dL (0.3-1.0); Globulin 3.4 g/dL (2.4-3.5); Lipase 16 Units/L (11-82); Total Protein 8.3 g/dL (6.4-8.9)
[2020-12-28] MEDS ORDERED: Piperacillin/Tazobactam 3.375 GM in Water for inj. (sterile) 20 ML IVP ONE (19:23)
[2020-12-28] MEDS ORDERED: methylPREDNISolone 125 MG/2 ML VIAL ONE ×2 (20:03→20:05)
[2020-12-28] MEDS ORDERED: *HR* EPINEPHrine 1 MG/10 ML SYRINGE ONE (20:03)
[2020-12-28] MEDS ORDERED: Famotidine 20 MG/2 ML VIAL ONE (20:06)
[2020-12-28] MEDS ORDERED: EPINEPHrine 1 MG/ML VIAL ONE (20:06)
[2020-12-28] MEDS ORDERED: methylPREDNISolone 125 MG/2 ML VIAL IVP ONE (20:08)
[2020-12-28] MEDS ORDERED: Famotidine 20 MG/2 ML VIAL IVP ONE (20:09)
[2020-12-28] MEDS ORDERED: EPINEPHrine 1 MG/ML VIAL IM ONE (20:10)
[2020-12-28] MEDS ORDERED: Ondansetron 4 MG/2 ML VIAL ONE (20:14)
[2020-12-28] MEDS ORDERED: Ondansetron 4 MG/2 ML VIAL IVP ONE (20:14)
[2020-12-28] MEDS: Albuterol 2.5 MG/3 ML NEBULIZER ONE (20:23)
[2020-12-28] MEDS ORDERED: ALPRAZolam 1 MG TABLET PO PRN (22:04)
[2020-12-28] MEDS: 0.9 % Sodium Chloride 1,000 ML IVC SCH (22:29)
[2020-12-28] MEDS: MetroNIDAZOLE 500 MG/100 ML 500 MG/100 ML BAG IVPB SCH (23:39)
[2020-12-29] MEDS: Ondansetron 4 MG/2 ML VIAL IVP PRN ×3 (04:49→18:25)
[2020-12-29] MEDS: 0.9 % Sodium Chloride 1,000 ML IVC SCH ×2 (05:47→19:34)
[2020-12-29] MEDS: MetroNIDAZOLE 500 MG/100 ML 500 MG/100 ML BAG IVPB SCH ×4 (05:49→23:13)
[2020-12-29] MEDS: carvediloL 25 MG TABLET PO SCH ×2 (08:45→19:34)
[2020-12-29] MEDS ORDERED: carBAMazepine 200 MG TABLET PO SCH (09:00)
[2020-12-29] MEDS ORDERED: aMILoride 5 MG TABLET PO SCH (09:00)
[2020-12-29] MEDS ORDERED: cloNIDine HCL 0.1 MG TABLET PO SCH (09:00)
[2020-12-29 12:47] LABS: Adenovirus Not Detected (Not Detect); Coronavirus 229E Not Detected (Not Detect); Coronavirus HKU1 Not Detected (Not Detect); Coronavirus NL63 Not Detected (Not Detect); Coronavirus OC43 Not Detected (Not Detect)
[2020-12-29 12:48] LABS: Bordetella Pertussis Not Detected (Not Detect); Chlamydophila pneumoniae Not Detected (Not Detect); Human Metapneumovirus Not Detected (Not Detect); Human Rhinovirus/Enterovirus Not Detected (Not Detect); Influenza A Subtype 2009 H1 Not Detected (Not Detect); Influenza B Not Detected (Not Detect); Mycoplasma pneumoniae Not Detected (Not Detect); Parainfluenza Virus 1 Not Detected (Not Detect); Parainfluenza Virus 2 Not Detected (Not Detect); Parainfluenza Virus 3 Not Detected (Not Detect); Parainfluenza Virus 4 Not Detected (Not Detect); Respiratory Syncytial Virus Not Detected (Not Detect); SARS-CoV-2 Not Detected (Not Detect)
[2020-12-29] MEDS ORDERED: *HR* Midazolam HCl 2 MG/2 ML VIAL ONE (15:44)
[2020-12-29] MEDS ORDERED: *HR* Propofol 200 MG/20 ML VIAL IVP ONE (15:44)
[2020-12-29] MEDS ORDERED: *HR* FentaNYL (PF) 100 MCG/2 ML VIAL ONE (15:44)
[2020-12-29] MEDS ORDERED: Ondansetron 4 MG/2 ML VIAL ONE (15:44)
[2020-12-29] MEDS ORDERED: *HR* Rocuronium Bromide 50 MG/5 ML VIAL ONE (15:44)
[2020-12-29] MEDS ORDERED: Lidocaine -MPF 4% 5 ML AMPUL ONE (15:44)
[2020-12-29] MEDS ORDERED: Lidocaine -MPF 2% 2 ML VIAL ONE (15:44)
[2020-12-29] MEDS ORDERED: Acetaminophen IV 1,000 MG/100 ML BAG IVPB ONE (16:05)
[2020-12-29] MEDS ORDERED: *HR* HYDROMORPHONE 2 MG/ML VIAL ONE (16:26)
[2020-12-29] MEDS ORDERED: EPHEDrine 50 MG/ML VIAL ONE (16:57)
[2020-12-29] MEDS ORDERED: Neostigmine Methylsulfate 3 MG/3 ML SYRINGE ONE (17:29)
[2020-12-29] MEDS: *HR* HYDROmorphone (PF) 1 MG/ML SYRINGE IVP PRN ×3 (18:16→18:34)
[2020-12-29] MEDS ORDERED: ALPRAZolam 1 MG TABLET PO PRN (19:04)
[2020-12-29] MEDS ORDERED: Ondansetron 4 MG/2 ML VIAL IVP PRN (19:04)
[2020-12-29] MEDS: carBAMazepine 200 MG TABLET PO SCH (19:47)
[2020-12-29] MEDS: *HR* OxyCODONE/APAP 10/325 TABLET PO PRN (19:48)
[2020-12-29] MEDS ORDERED: Ziprasidone 20 MG CAPSULE PO SCH ×2 (21:00)
[2020-12-30] MEDS: *HR* OxyCODONE/APAP 10/325 TABLET PO PRN ×2 (02:00→09:14)
[2020-12-30] MEDS: MetroNIDAZOLE 500 MG/100 ML 500 MG/100 ML BAG IVPB SCH (05:05)
[2020-12-30] MEDS ORDERED: *HR* OxyCODONE/APAP 10/325 TABLET PO ONE (05:10)
[2020-12-30 07:37] VITALS: BP 162/82
[2020-12-30] MEDS ORDERED: carvediloL 25 MG TABLET PO SCH (08:00)
[2020-12-30] MEDS ORDERED: aMILoride 5 MG TABLET PO SCH (09:00)
[2020-12-30] MEDS ORDERED: cloNIDine HCL 0.1 MG TABLET PO SCH (09:00)
[2020-12-30] MEDS: carBAMazepine 200 MG TABLET PO SCH (09:14)
== END 2020-12-30 10:24 | disposition home or self-care (01) ==
LOC: EMEROOARM 13:23 → 3BNU 13:23
PROVIDERS: ADMIT Surgery; ATTEND Surgery